=== PATIENT | male | born 2000 | race Two or more races ===

== ENCOUNTER 2022-03-08 05:25 | Inpatient (IN) ==
[2022-03-08] MEDS ORDERED: ACETAMINOPHEN 1,000 MG/100 ML VIAL IV STA (05:37)
[2022-03-08] MEDS ORDERED: KETOROLAC 30 MG/ML VIAL IV STA (05:37)
--- NOTE | 2022-03-08 05:52 | Emergency Department Note ---
History of Present Illness General Chief complaint: Respiratory Problems Stated complaint: HAVING TROUBLE BREATHING,PAIN Time Seen by Provider: 03/08/22 05:32 History of Present Illness Maximum Pain Intensity: 10 This is a 21-year-old male presenting to the emergency department for evaluation of right-sided chest pain that he rates a 10/10. He also states he is having difficulty breathing. The patient was seen and evaluated in this ER roughly 36 hours ago for this complaint. He did have a slightly elevated white count at that time, and ultimately underwent CT angiogram of the chest, which did reveal a right sided infiltrate consistent with pneumonia. The patient was started on doxycycline and states that he has taken 3 doses of the antibiotic. The patient states that his chest pain now is worse than it was before. He did try naproxen at home without relief of symptoms. He does not have any head, neck, or abdominal discomfort. He has been running a fever off and on today. Home Medications Medication Instructions Recorded Confirmed Type doxycycline hyclate 100 mg capsule 100 mg PO BID 7 days #14 caps 03/06/22 Rx Past Med/Surg History Medical History No pertinent family history No pertinent past medical history Surgical History No pertinent past surgical history Social History Smoking Status: Current every day smoker Tobacco Type: E-cigarettes / Vaping Preferred Language: Spanish Feels Safe at Home: Yes Review of Systems A total of 10 systems reviewed and were otherwise negative Physical Exam Vital Signs Vital Signs - 24 hr 03/08/22 05:26 03/08/22 05:33 03/08/22 05:25 Temperature 38.5 C H 37.2 C Temperature Source Temporal Artery Scan Oral Pulse Rate 163 H 135 H Pulse Rate [Right] 143 H Respiratory Rate 18 20 21 Respiratory Effort / Characteristics Non-Labored Spontaneous Non-Labored Respiratory Depth Normal Shallow Respiratory Pattern Regular Blood Pressure 147/81 H Blood Pressure [Right Arm] 140/77 Blood Pressure Mean 103 Blood Pressure Mean [Right Arm] 98 Blood Pressure Position Sitting Pulse Oximetry 96 94 94 Oxygen Delivery Method Room Air Room Air Room Air Sepsis Recent Fever Within 48 Hours Yes Sepsis New/Unexplained Change in Mental Status N/A Sepsis Action Taken by Nursing No Action Required 03/08/22 05:25 Temperature Temperature Source Pulse Rate Pulse Rate [Right] Respiratory Rate Respiratory Effort / Characteristics Respiratory Depth Respiratory Pattern Blood Pressure Blood Pressure [Right Arm] Blood Pressure Mean Blood Pressure Mean [Right Arm] Blood Pressure Position Pulse Oximetry Oxygen Delivery Method Room Air Sepsis Recent Fever Within 48 Hours Sepsis New/Unexplained Change in Mental Status Sepsis Action Taken by Nursing VITALS: Vitals are noted on the nurse's note and reviewed by myself. Vital signs with fever and tachycardia. GENERAL: Well-developed, well-nourished, male who is ill appearing and in moderate discomfort. He is answering questions appropriately and able to speak in full sentences. HEAD: Normocephalic atraumatic. NECK: Supple without nuchal rigidity. No lymphadenopathy. No thyromegaly. Cervical spine is nontender. HEART: Regular rate and rhythm without murmurs gallops or rubs. LUNGS: Scattered wheezing throughout ABDOMEN: Positive normal bowel sounds x 4. Soft, nontender, without masses or organomegaly. No guarding or rebound tenderness. MUSCULOSKELETAL: No muscle atrophy, erythema, or edema noted. Full range of motion in all extremities. Course Administered Medications Sodium Chloride (Nss 1000ml) 1,000 mls @ 999 mls/hr IV .Q1H1M DAWOOD Stop: 03/08/22 07:45 Last Admin: 03/08/22 06:49 Dose: 999 mls/hr Documented By: Infusion: 03/08/22 06:49 Dose: 999 mls/hr Documented By: Admin: 03/08/22 05:54 Dose: 999 mls/hr Documented By: JEOVANNY Discontinued Medications Acetaminophen (Ofirmev) 1,000 mg in 100 mls @ 400 mls/hr IV NOW STA Stop: 03/08/22 05:51 Last Infusion: 03/08/22 06:24 Dose: 0 mls/hr Documented By: Admin: 03/08/22 05:53 Dose: 400 mls/hr Documented By: JEOVANNY Ceftriaxone Sodium (Rocephin) 2,000 mg in 70 mls @ 140 mls/hr IV NOW STA Stop: 03/08/22 07:10 Last Admin: 03/08/22 06:49 Dose: 140 mls/hr Documented By: JEOVANNY Ketorolac Tromethamine (Ketorolac 30 Mg/Ml Vial) 30 mg IV NOW STA Stop: 03/08/22 05:38 Last Admin: 03/08/22 05:53 Dose: 30 mg Documented By: JEOVANNY Medical Decision Making Differential Diagnosis Differential diagnosis: Etiologies such as viral syndrome, otitis, pharyngitis, pneumonia, influenza, meningitis, urinary tract infection, septic arthritis, soft tissue infectious process, intra-abdominal process, sepsis, bacteremia, as well as others were entertained. Laboratory Data Result diagrams: 03/08/22 05:46 03/08/22 05:46 Lab Results 03/08/22 03/08/22 03/08/22 Range/Units 05:46 05:46 05:46 WBC 14.55 H (4.8-10.8) K/ul RBC 4.47 L (4.63-6.08) M/uL Hgb 13.3 L (14.0-18.0) g/dl Hct 37.3 L (40.1-51.0) % MCV 83.4 (80.0-100.0) fL MCH 29.8 (25.0-34.0) pg MCHC 35.7 (32.0-36.0) g/dL RDW Std Deviation 34.0 L (36.4-46.3) fL RDW Coeff of Rose 11.1 L (11.5-14.5) % Plt Count 324 (130-400) K/uL MPV 9.6 (9.4-12.4) fL Immature Gran % (Auto) 0.3 % Neut % (Auto) 89.5 % Lymph % (Auto) 3.8 % [place] % (Auto) 5.4 % Eos % (Auto) 0.8 % Baso % (Auto) 0.2 % Neut # (Auto) 13.04 H (1.4-6.5) K/uL Lymph # (Auto) 0.55 L (1.2-3.4) K/uL [place] # (Auto) 0.78 (0.24-0.82) K/uL Eos # (Auto) 0.11 (0-0.50) K/uL Baso # (Auto) 0.03 (0-0.2) K/uL Immature Gran # (Auto) 0.04 H (0.00-0.02) K/uL Sodium 136 (136-145) mmol/L Potassium 3.4 L (3.5-5.1) mmol/L Chloride 103 (98-107) mmol/L Carbon Dioxide 23 (21-32) mmol/L Anion Gap 10 (3-11) BUN 13 (6-23) mg/dl Creatinine 0.79 (0.6-1.4) mg/dl Est Cr Clr Drug Dosing 183.6 ml/min Est GFR ( Amer) 149.8 ml/min Est GFR (Non-Af Amer) 129.3 ml/min BUN/Creatinine Ratio 16.5 (10-20) Glucose 130 H (70-99(Fasting)) mg/dl Lactate 0.7 (0.4-2.0) mmol/L Calcium 9.1 (8.5-10.1) mg/dl Magnesium 1.6 L (1.7-2.4) mg/dl Total Bilirubin 1.7 H (0.2-1.0) mg/dl Direct Bilirubin 0.7 H (0-0.2) mg/dl AST 15 (13-39) U/L ALT 22 (7-52) U/L Alkaline Phosphatase 85 (34-104) U/L Troponin I High Sens 3.4 (0-20) pg/ml Total Protein 7.5 (6.0-8.3) gm/dl Albumin 4.1 (3.4-5.0) gm/dl Procalcitonin (0-0.5) ng/ml Urine Color Urine Appearance (Clear) Urine pH (4.5-7.5) Ur Specific [place] (1.000-1.030) Urine Protein (Negative) Urine Glucose (UA) (Negative) Urine Ketones (Negative) Urine Blood (Negative) Urine Nitrite (Negative) Urine Bilirubin (Negative) Urine Urobilinogen (Negative) Ur Leukocyte Esterase (Negative) SARS-CoV-2 (PCR) (Negative) Influenza Type A (PCR) (Neg) Influenza Type B (PCR) (Neg) RSV (RT-PCR) (Neg) 03/08/22 03/08/22 03/08/22 Range/Units 05:46 Unknown Unknown WBC (4.8-10.8) K/ul RBC (4.63-6.08) M/uL Hgb (14.0-18.0) g/dl Hct (40.1-51.0) % MCV (80.0-100.0) fL MCH (25.0-34.0) pg MCHC (32.0-36.0) g/dL RDW Std Deviation (36.4-46.3) fL RDW Coeff of Rose (11.5-14.5) % Plt Count (130-400) K/uL MPV (9.4-12.4) fL Immature Gran % (Auto) % Neut % (Auto) % Lymph % (Auto) % [place] % (Auto) % Eos % (Auto) % Baso % (Auto) % Neut # (Auto) (1.4-6.5) K/uL Lymph # (Auto) (1.2-3.4) K/uL [place] # (Auto) (0.24-0.82) K/uL Eos # (Auto) (0-0.50) K/uL Baso # (Auto) (0-0.2) K/uL Immature Gran # (Auto) (0.00-0.02) K/uL Sodium (136-145) mmol/L Potassium (3.5-5.1) mmol/L Chloride (98-107) mmol/L Carbon Dioxide (21-32) mmol/L Anion Gap (3-11) BUN (6-23) mg/dl Creatinine (0.6-1.4) mg/dl Est Cr Clr Drug Dosing ml/min Est GFR ( Amer) ml/min Est GFR (Non-Af Amer) ml/min BUN/Creatinine Ratio (10-20) Glucose (70-99(Fasting)) mg/dl Lactate (0.4-2.0) mmol/L Calcium (8.5-10.1) mg/dl Magnesium (1.7-2.4) mg/dl Total Bilirubin (0.2-1.0) mg/dl Direct Bilirubin (0-0.2) mg/dl AST (13-39) U/L ALT (7-52) U/L Alkaline Phosphatase (34-104) U/L Troponin I High Sens (0-20) pg/ml Total Protein (6.0-8.3) gm/dl Albumin (3.4-5.0) gm/dl Procalcitonin 0.56 H (0-0.5) ng/ml Urine Color Yellow Urine Appearance Clear (Clear) Urine pH 6.5 (4.5-7.5) Ur Specific [place] 1.020 (1.000-1.030) Urine Protein Negative (Negative) Urine Glucose (UA) Negative (Negative) Urine Ketones Negative (Negative) Urine Blood Negative (Negative) Urine Nitrite Negative (Negative) Urine Bilirubin Negative (Negative) Urine Urobilinogen Positive H (Negative) Ur Leukocyte Esterase Negative (Negative) SARS-CoV-2 (PCR) NEGATIVE (Negative) Influenza Type A (PCR) Negative (Neg) Influenza Type B (PCR) Negative (Neg) RSV (RT-PCR) Negative (Neg) Imaging Data Radiologist's Impression: Chest X-Ray 03/08/22 05:33 XR chest 1V portable HISTORY: 21 years-old Male Sepsis acute shortness of breath with sepsis COMPARISON: Chest radiograph and CTA chest study is 03/06/2022 TECHNIQUE: AP view of the chest FINDINGS: Cardiomediastinal and hilar silhouettes are within normal limits. Mildly increased size of the small right pleural effusion with progressive right midlung and right basilar consolidation. No pneumothorax. The left lung and appears to be generally clear. The bones appear grossly intact. IMPRESSION: Mildly increased size of the small right pleural effusion with progressive consolidation of the right midlung and right lung base suggestive of pneumonia. ACT 112: Negative or not required by law. The above report was generated using voice recognition software. It may contain grammatical, syntax or spelling errors. Electronically signed by: Jacoby Castillo M.D. 03/08/2022 6:37 AM [facility] Narrative Physical exam and history were performed. Nursing notes, EMR, and Medication List were personally reviewed. Patient appears to have recent diagnosis with pneumonia and reportedly worsening symptoms today. The patient is tachycardic and febrile on arrival. He appears unwell. IV access was established and labs are obtained. He was hydrated with normal saline and given IV Toradol and IV Tylenol. Lactic and blood cultures were gathered. Chest x-ray was performed. An order was placed for continuous cardiac monitoring. The monitor shows a rate of 135 with sinus tachycardic rhythm. The patient's blood work is as above and was reviewed. He does have an elevated white count, and this does seem worse than yesterday. Additionally his neutrophils are elevated. Electrolytes and transaminases are not remarkably. COVID, influenza, and RSV are all negative. Chest x-ray was reviewed by myself and radiology, and does show a worsening pneumonia on the right side. Lactic is negative. Case was discussed with my attending, and clinically the patient likely has a community-acquired pneumonia. He does not have other significant comorbidities. He was given IV Rocephin and IV Zithromax here in the ER. The patient does not appear well for discharge home as he has worsening pneumonia despite antibiotic treatment. The case was discussed with the on-call hospitalist team who agreed to evaluate the patient here in the ER. Please see their dictation for further patient course, plan, disposition. The chart was completed utilizing [employer] Speech Voice Recognition Software. Grammatical errors, random word insertions, pronoun errors, and incomplete sentences are an occasional consequence of this system due to software limitations, ambient noise, and hardware issues. Any formal questions or concern s about the content, text, or information contained within the body of this dictation should be directly addressed to the provider for clarification. . Impression & Plan Pneumonia Discharge Plan Visit Data Chief Complaint: Respiratory Problems Stated Complaint: HAVING TROUBLE BREATHING,PAIN ED Provider: Jovita Barrera ED Midlevel Provider: Brenden Monk Discharge Problem: Pneumonia Patient Disposition: Being Evaluated by Hospitalist Forms Stand Alone Forms: My [facility] ClientShow Prescriptions Prescriptions: No Action doxycycline hyclate 100 mg capsule 100 mg PO BID 7 Days Qty: 14 0RF Referrals Referrals: PCP,NO [Physician] -
[2022-03-08] MEDS: SODIUM CHLORIDE 0.9% 1000ML 1,000 ML IV SCH ×2 (05:54→06:49)
[2022-03-08 06:01] LABS: Basophils # (auto) 0.03 K/uL (0-0.2); Basophils % (auto) 0.2 %; Eosinophils # (auto) 0.11 K/uL (0-0.50); Eosinophils % (auto) 0.8 %; Hematocrit (blood only) 37.3 % (40.1-51.0); Hemoglobin 13.3 g/dl (14.0-18.0); Immature Granulocytes # (auto) 0.04 K/uL (0.00-0.02); Immature Granulocytes % (auto) 0.3 %; Lymphocytes # (auto) 0.55 K/uL (1.2-3.4); Lymphocytes % (auto) 3.8 %; Mean Corpuscular Hemoglobin 29.8 pg (25.0-34.0); Mean Corpuscular Hgb Conc 35.7 g/dL (32.0-36.0); Mean Corpuscular Volume 83.4 fL (80.0-100.0); Mean Platelet Volume 9.6 fL (9.4-12.4); Monocytes # (auto) 0.78 K/uL (0.24-0.82); Monocytes % (auto) 5.4 %; Neutrophils # (auto) 13.04 K/uL (1.4-6.5); Neutrophils % (auto) 89.5 %; Platelet Count 324 K/uL (130-400); RDW Coefficient of Variation 11.1 % (11.5-14.5); Red Blood Count 4.47 M/uL (4.63-6.08); White Blood Count 14.55 K/ul (4.8-10.8)
[2022-03-08 06:36] LABS: Troponin I High Sensitivity 3.4 pg/ml (0-20)
--- NOTE | 2022-03-08 06:38 | XRay Report ---
XR chest 1V portable HISTORY: 21 years-old Male Sepsis acute shortness of breath with sepsis COMPARISON: Chest radiograph and CTA chest study is 03/06/2022 TECHNIQUE: AP view of the chest FINDINGS: Cardiomediastinal and hilar silhouettes are within normal limits. Mildly increased size of the small right pleural effusion with progressive right midlung and right basilar consolidation. No pneumothora x. The left lung and appears to be generally clear. The bones appear grossly intact. IMPRESSION: Mildly increased size of the small right pleural effusion with progressive consolidation of the right midlung and right lung base suggestive of pneumonia. ACT 112: Negative or not required by law. The above report was generated using voice recognition software. It may contain grammatical, syntax o r spelling errors. Electronically signed by: Jacoby Castillo M.D. 03/08/2022 6:37 AM
[2022-03-08 06:41] LABS: Albumin Level 4.1 gm/dl (3.4-5.0); BUN Creatinine Ratio 16.5 (10-20); Bilirubin Direct 0.7 mg/dl (0-0.2); Bilirubin,Total 1.7 mg/dl (0.2-1.0); Calcium 9.1 mg/dl (8.5-10.1); Creatinine Clr Calc Pharmacy 183.6 ml/min; Est GFR (African American) 149.8 ml/min; Est GFR (Non-African American) 129.3 ml/min; Magnesium 1.6 mg/dl (1.7-2.4); Potassium 3.4 mmol/L (3.5-5.1); Total Protein 7.5 gm/dl (6.0-8.3)
[2022-03-08] MEDS ORDERED: cefTRIAXone SODIUM 2,000 MG/70 ML BAG IV STA (06:41)
[2022-03-08] MEDS ORDERED: AZITHROMYCIN 500 MG in DEXTROSE 5% 250 ML IV STA (06:41)
[2022-03-08 07:09] LABS: Influenza A virus by PCR Negative (Neg); Influenza B virus by PCR Negative (Neg); RSV by PCR Negative (Neg); SARS CoV2 RNA(COVID-19) Ceph NEGATIVE (Negative)
[2022-03-08 07:12] LABS: Appearance Urine Clear (Clear); Bilirubin Urine Negative (Negative); Blood Urine Negative (Negative); Color Urine Yellow; Glucose Urine UA Negative (Negative); Ketones Urine Negative (Negative); Leukocyte Esterase Urine Negative (Negative); Nitrite Urine Negative (Negative); Protein Urine Negative (Negative); Urobilinogen Urine Positive (Negative); pH Urine 6.5 (4.5-7.5)
[2022-03-08] MEDS ORDERED: POLYETHYLENE (MIRALAX) 17 GM PACK PO PRN (09:22)
[2022-03-08] MEDS ORDERED: ONDANSETRON INJ 2 MG/ML 2 ML VIAL IV PRN (09:22)
[2022-03-08] MEDS ORDERED: ALUMINUM/MAGNESIUM SUSP 30 ML UDC PO PRN (09:22)
--- NOTE | 2022-03-08 10:29 | Medical Student Progress Note ---
Date of Service March 08, 2022 Assessment & Plan (1) Pneumonia: Plan: Delvin Sweeney is a 21 year old male who presented early this morning (03/08) with worsening chest pain, accompanied by SOB and cough. He presented to the ED 2 days ago on 03/06 with recent URI and chest pain. He was found to have right- sided infiltrate consistent with pneumonia and trace right pleural effusion on CT. Prescribed doxycycline & took 3 doses of the antibiotic. 1. Pneumonia - Patient presented to ED early this morning to ED for worsening chest pain and SOB. Chest XR today showed progressive consolidation of right mid-lung and lung base consistent with pneumonia & mildly increased size of right pleural effusion. - Labs significant for leukocytosis, mild hyperbilirubinemia, elevated procalcitonin. - Discontinued doxycycline. Started on ceftriaxone 2 g IV q24h and azithromycin 0.5 g IV q24h for broader abx coverage in case of resistant S. Pneumo, H. flu, or other gram negative. Azithromycin for atypical coverage, though decreased suspicion for atypical as CXR shows a lobar pattern. Plan to observe for improvement/stabilization. - Prescribed acetaminophen 650 mg PO q4h prn for pleuritic chest pain related to PNA. Admission and Anticipated Discharge Date Admission Date: March 08, 2022 Supervising Attestation I personally examined the patient and verified all dugan points of history and exam, discussed case, and agree with decision making with La Nena Kowalski MS2 Chest pain, cough, fever. Pneumonia. Vitals noted, in general he is awake and alert fatigued but no distress. HEENT normocephalic atraumatic mucous membranes moist. Breathing unlabored no accessory muscle use good effort. Skin shows no rashes no pallor or icterus. Neuro without focal deficits. Exam otherwise as above. Community-acquired pneumonia with sepsis present on admission -not entirely clear if he failed Doxy or just enough time to improvehowever, resistant strep versus H. influenzae both possibleZithromax/Rocephin, supportive care. Subjective Delvin Sweeney is a 21 year old male patient with no significant past medical history presenting to the ED for worsening chest pain and shortness of breath. Patient went to [facility] one week ago for chest pain and was prescribed naproxen. Patient presented to the ED on 03/06 for ongoing chest pain and shortness of breath. Chest x-ray in ED showed findings of mid right hemidiaphragmatic elevation with no evidence of pneumothorax, pleural effusion, airspace consolidation or overt pulmonary edema. Chest CTA showed findings of a small focal peripheral airspace opacity within the right upper lobe. Patient was treated for pneumonia with doxycycline 100mg BID. Patient is presenting to the ED today with worsening chest pain and shortness of breath. Patient reports the pain is on the right side and is sharp in nature. Patient rates the pain 6-7/10. Patient states the pain is worse with breathing and when changing positions. The patient denies radiation of pain. Patient states naproxen improves chest pain for 30 minutes to an hour at a time before returning. Patient also states he experiences right sided neck pain when coughing or changing position. Patient reports shortness of breath has not improved. Patient also has dry cough that has been improving. Patient reports one episode of vomiting yesterday morning. Patient states he is fatigued and has a decreased appetite. Patient vapes daily. Patient stopped vaping 2 weeks ago when started feeling sick. Patient denies sore throat, chills, lightheadedness, headache, abdominal pain, nausea, diarrhea, constipation, dysuria, or hematuria. FamHx: Father: CAD Paternal Grandfather: CAD SocHx: Education/ Occupation: Student at [employer]. Tobacco: vapes daily. Alcohol: none. Illicits: none. Exercise: none. Home Meds: None Review of Systems Review of Systems: As noted in HPI. Cardiovascular: Additional Comments: Physical Exam Constitutional: Well-developed male in no acute distress. Resting comfortably in bed, increased discomfort with sitting/movement. Eyes: No scleral icterus. Conjunctivae pink. ENMT: Moist mucous membranes. No oral erythema or lesions. Neck: Supple with full ROM. Respiratory: Not in respiratory distress. Diminished breath sounds in right lower lung field. +egophony over the right lower lung field. No tactile fremitus . Left lung clear to auscultation. Cardiovascular: Regular rate and rhythm on monitor. No murmurs, rubs, or gallops on auscultation. No LE edema. Good capillary refill. Gastrointestinal (Abdomen): Bowel sounds present. Abdomen soft, nondistended, nontender. No masses palpated. Skin: Warm & dry. No rashes. Neurologic: Alert & oriented x 3. No focal neurologic deficits. Psychiatric: Appropriate mood and affect. Results & Data ([facility]) Vital Signs (Past 12 Hours) Vital Signs Temp Pulse Pulse Resp BP BP Pulse Ox 03/08/22 08:40 105 H 24 96 03/08/22 08:32 106 H 23 110/71 96 03/08/22 08:32 110/71 03/08/22 08:30 101 H 32 H 95 03/08/22 08:30 117/74 03/08/22 08:25 96 03/08/22 08:10 104 H 21 03/08/22 08:00 108 H 14 03/08/22 08:00 128/68 03/08/22 07:45 110 H 21 122/68 95 03/08/22 07:40 112 H 28 H 95 03/08/22 07:30 116 H 15 94 03/08/22 07:15 120/73 03/08/22 07:00 126 H 24 132/68 94 03/08/22 05:25 03/08/22 05:25 37.2 C 143 H 21 140/77 94 03/08/22 05:33 135 H 20 94 03/08/22 05:26 38.5 C H 163 H 18 147/81 H 96 O2 Del Method 03/08/22 08:40 Room Air 03/08/22 08:32 Room Air 03/08/22 08:32 03/08/22 08:30 Room Air 03/08/22 08:30 03/08/22 08:25 Room Air 03/08/22 08:10 03/08/22 08:00 03/08/22 08:00 03/08/22 07:45 Room Air 03/08/22 07:40 Room Air 03/08/22 07:30 Room Air 03/08/22 07:15 03/08/22 07:00 Room Air 03/08/22 05:25 Room Air 03/08/22 05:25 Room Air 03/08/22 05:33 Room Air 03/08/22 05:26 Room Air
--- NOTE | 2022-03-08 17:33 | History & Physical Report ---
Date of Service March 08, 2022 Assessment & Plan Admission and Anticipated Discharge Date Admission Date: March 08, 2022 History of Present Illness Primary Care Provider: [facility] Date of Service March 08, 2022 Assessment & Plan (1) Pneumonia: Plan: Delvin Sweeney is a 21 year old male who presented early this morning (03/08) with worsening chest pain, accompanied by SOB and cough. He presented to the ED 2 days ago on 03/06 with recent URI and chest pain. He was found to have right- sided infiltrate consistent with pneumonia and trace right pleural effusion on CT. Prescribed doxycycline & took 3 doses of the antibiotic. 1. Pneumonia - Patient presented to ED early this morning to ED for worsening chest pain and SOB. Chest XR today showed progressive consolidation of right mid-lung and lung base consistent with pneumonia & mildly increased size of right pleural effusion. - Labs significant for leukocytosis, mild hyperbilirubinemia, elevated procalcitonin. - Discontinued doxycycline. Started on ceftriaxone 2 g IV q24h and azithromycin 0.5 g IV q24h for broader abx coverage in case of resistant S. Pneumo, H. flu, or other gram negative. Azithromycin for atypical coverage, though decreased suspicion for atypical as CXR shows a lobar pattern. Plan to observe for improvement/stabilization. - Prescribed acetaminophen 650 mg PO q4h prn for pleuritic chest pain related to PNA. Admission and Anticipated Discharge Date Admission Date: March 08, 2022 Supervising Attestation I personally examined the patient and verified all dugan points of history and exam, discussed case, and agree with decision making with La Nena Kowalski MS2 Chest pain, cough, fever. Pneumonia. Vitals noted, in general he is awake and alert fatigued but no distress. HEENT normocephalic atraumatic mucous membranes moist. Breathing unlabored no accessory muscle use good effort. Skin shows no rashes no pallor or icterus. Neuro without focal deficits. Exam otherwise as above. Community-acquired pneumonia with sepsis present on admission -not entirely clear if he failed Doxy or just enough time to improvehowever, resistant strep versus H. influenzae both possibleZithromax/Rocephin, supportive care. Subjective Delvin Sweeney is a 21 year old male patient with no significant past medical history presenting to the ED for worsening chest pain and shortness of breath. Patient went to [facility] one week ago for chest pain and was prescribed naproxen. Patient presented to the ED on 03/06 for ongoing chest pain and shortness of breath. Chest x-ray in ED showed findings of mid right hemidiaphragmatic elevation with no evidence of pneumothorax, pleural effusion, airspace consolidation or overt pulmonary edema. Chest CTA showed findings of a small focal peripheral airspace opacity within the right upper lobe. Patient was treated for pneumonia with doxycycline 100mg BID. Patient is presenting to the ED today with worsening chest pain and shortness of breath. Patient reports the pain is on the right side and is sharp in nature. Patient rates the pain 6-7/10. Patient states the pain is worse with breathing and when changing positions. The patient denies radiation of pain. Patient states naproxen improves chest pain for 30 minutes to an hour at a time before returning. Patient also states he experiences right sided neck pain when coughing or changing position. Patient reports shortness of breath has not improved. Patient also has dry cough that has been improving. Patient reports one episode of vomiting yesterday morning. Patient states he is fatigued and has a decreased appetite. Patient vapes daily. Patient stopped vaping 2 weeks ago when started feeling sick. Patient denies sore throat, chills, lightheadedness, headache, abdominal pain, nausea, diar burke, constipation, dysuria, or hematuria. FamHx: Father: CAD Paternal Grandfather: CAD SocHx: Education/ Occupation: Student at [employer]. Tobacco: vapes daily. Alcohol: none. Illicits: none. Exercise: none. Home Meds: None Review of Systems Review of Systems: As noted in HPI. Cardiovascular: Additional Comments: Physical Exam Constitutional: Well-developed male in no acute distress. Resting comfortably in bed, increased discomfort with sitting/movement. Eyes: No scleral icterus. Conjunctivae pink. ENMT: Moist mucous membranes. No oral erythema or lesions. Neck: Supple with full ROM. Respiratory: Not in respiratory distress. Diminished breath sounds in right lower lung field. +egophony over the right lower lung field. No tactile fremitus. Left lung clear to auscultation. Cardiovascular: Regular rate and rhythm on monitor. No murmurs, rubs, or gallops on auscultation. No LE edema. Good capillary refill. Gastrointestinal (Abdomen): Bowel sounds present. Abdomen soft, nondistended, nontender. No masses palpated. Skin: Warm & dry. No rashes. Neurologic: Alert & oriented x 3. No focal neurologic deficits. Psychiatric: Appropriate mood and affect. Results & Data ([facility] [place]) Vital Signs (Past 12 Hours) Vital Signs Temp Pulse Pulse Resp BP BP Pulse Ox 03/08/22 08:40 105 H 24 96 03/08/22 08:32 106 H 23 110/71 96 03/08/22 08:32 110/71 03/08/22 08:30 101 H 32 H 95 03/08/22 08:30 117/74 03/08/22 08:25 96 03/08/22 08:10 104 H 21 03/08/22 08:00 108 H 14 03/08/22 08:00 128/68 03/08/22 07:45 110 H 21 122/68 95 03/08/22 07:40 112 H 28 H 95 03/08/22 07:30 116 H 15 94 03/08/22 07:15 120/73 C 03/08/22 07:00 126 H 24 132/68 94 03/08/22 05:25 03/08/22 05:25 37.2 C 143 H 21 140/77 94 03/08/22 05:33 135 H 20 94 03/08/22 05:26 38.5 C H 163 H 18 147/81 H 96 C O2 Del Method 03/08/22 08:40 Room Air 03/08/22 08:32 Room Air 03/08/22 08:32 03/08/22 08:30 Room Air 03/08/22 08:30 03/08/22 08:25 Room Air 03/08/22 08:10 03/08/22 08:00 03/08/22 08:00 03/08/22 07:45 Room Air 03/08/22 07:40 Room Air 03/08/22 07:30 Room Air 03/08/22 07:15 03/08/22 07:00 Room Air 03/08/22 05:25 Room Air 03/08/22 05:25 Room Air 03/08/22 05:33 Room Air 03/08/22 05:26 Room Air Signed By: <Electronically signed by Janie Kowalski > 03/08/22 1610 <Electronically signed by Solomon Talamantes DO> 03/08/22 1732 Allergies Allergy/AdvReac Type Severity Reaction Status Date / Time No Known Allergies Allergy Unverified 03/08/22 15:43 Home Medications Medication Instructions Recorded Confirmed Type doxycycline hyclate 100 mg capsule 100 mg PO BID 7 days #14 caps 03/06/22 03/08/22 Rx naproxen 500 mg tablet 500 mg PO UD 03/08/22 03/08/22 History Past Med/Surg History Medical History No pertinent family history No pertinent past medical history Surgical History No pertinent past surgical history Social History Smoking Status: Current every day smoker Tobacco Type: E-cigarettes / Vaping Preferred Language: Faroese Communication Ability: Effective Feels Safe at Home: Yes Assistive Devices: None Results & Data Results & Data ([facility] [place]) Vital Signs (Past 12 Hours) Vital Signs Temp Pulse Pulse Resp BP BP Pulse Ox 03/08/22 11:37 89 20 132/66 98 03/08/22 07:08 99.1 F 03/08/22 08:40 105 H 24 96 03/08/22 08:32 106 H 23 110/71 96 03/08/22 08:32 110/71 03/08/22 08:30 101 H 32 H 95 03/08/22 08:30 117/74 03/08/22 08:25 96 03/08/22 08:10 104 H 21 03/08/22 08:00 108 H 14 03/08/22 08:00 128/68 03/08/22 07:45 110 H 21 122/68 95 03/08/22 07:40 112 H 28 H 95 03/08/22 07:30 116 H 15 94 03/08/22 07:15 120/73 03/08/22 07:00 126 H 24 132/68 94 O2 Del Method 03/08/22 11:37 Room Air 03/08/22 07:08 03/08/22 08:40 Room Air 03/08/22 08:32 Room Air 03/08/22 08:32 12/08/22 08:30 Room Air 03/08/22 08:30 03/08/22 08:25 Room Air 03/08/22 08:10 03/08/22 08:00 03/08/22 08:00 03/08/22 07:45 Room Air 03/08/22 07:40 Room Air 03/08/22 07:30 Room Air 03/08/22 07:15 03/08/22 07:00 Room Air PG Care Time/CCT Total # of Minutes Spent Total Time Spent with Patient: Total time spent is greater than 50% in coordination of care (as documented) at patient's floor/unit and/or counseling patient: Coding Level of Care Code INT OBSERVATION CARE 70M LVL 3
[2022-03-08] MEDS: ACETAMINOPHEN 325 MG TAB PO PRN (18:01)
[2022-03-09] MEDS: ACETAMINOPHEN 325 MG TAB PO PRN ×2 (00:09→07:48)
--- NOTE | 2022-03-09 05:34 | Electrocardiogram Report ---
Test Reason : Blood Pressure : / mmHG Vent. Rate : 151 BPM Atrial Rate : 151 BPM P-R Int : 134 ms QRS Dur : 086 ms QT Int : 254 ms P-R-T Axes : 057 044 -02 degrees QTc Int : 402 ms Poor data quality, interpretation may be adversely affected Sinus tachycardia T wave abnormality, consider inferior ischemia Nonspecific ST abnormality Abnormal ECG When compared with ECG of 06-MAR-2022 17:04, Non-specific change in ST segment in Lateral leads Confirmed by Carlitos Bonilla ([id number]) on 03/09/2022 5:34:41 AM Referred By: REFERRED SELF Confirmed By:Carlitos Bonilla
[2022-03-09] MEDS: cefTRIAXone SODIUM 2,000 MG in DEXTROSE 5% 50 ML IV SCH (06:32)
[2022-03-09] MEDS: AZITHROMYCIN 500 MG in DEXTROSE 5% 250 ML IV SCH (07:53)
[2022-03-09 08:01] LABS: Basophils # (auto) 0.03 K/uL (0-0.2); Basophils % (auto) 0.2 %; Eosinophils # (auto) 0.35 K/uL (0-0.50); Eosinophils % (auto) 2.4 %; Hematocrit (blood only) 33.8 % (40.1-51.0); Hemoglobin 11.7 g/dl (14.0-18.0); Immature Granulocytes # (auto) 0.08 K/uL (0.00-0.02); Immature Granulocytes % (auto) 0.5 %; Lymphocytes # (auto) 1.61 K/uL (1.2-3.4); Lymphocytes % (auto) 10.8 %; Mean Corpuscular Hemoglobin 29.3 pg (25.0-34.0); Mean Corpuscular Hgb Conc 34.6 g/dL (32.0-36.0); Mean Corpuscular Volume 84.5 fL (80.0-100.0); Mean Platelet Volume 9.6 fL (9.4-12.4); Monocytes # (auto) 1.42 K/uL (0.24-0.82); Monocytes % (auto) 9.5 %; Neutrophils # (auto) 11.39 K/uL (1.4-6.5); Neutrophils % (auto) 76.6 %; Platelet Count 313 K/uL (130-400); RDW Coefficient of Variation 11.4 % (11.5-14.5); RDW Standard Deviation 35.4 fL (36.4-46.3); White Blood Count 14.88 K/ul (4.8-10.8)
[2022-03-09 08:35] LABS: Alanine Aminotransferase 16 U/L (7-52); Albumin Globulin Ratio 1.1 (0.9-2); Albumin Level 3.5 gm/dl (3.4-5.0); Alkaline Phosphatase 76 U/L (34-104); Anion Gap 7 (3-11); Aspartate Aminotransferase 8 U/L (13-39); BUN Creatinine Ratio 11.4 (10-20); Bilirubin,Total 1.2 mg/dl (0.2-1.0); Blood Urea Nitrogen 8 mg/dl (6-23); Calcium 8.6 mg/dl (8.5-10.1); Carbon Dioxide 26 mmol/L (21-32); Chloride 106 mmol/L (98-107); Creatinine Clr Calc Pharmacy 206.5 ml/min; Est GFR (African American) > 150.0 ml/min; Est GFR (Non-African American) 135.9 ml/min; Globulin 3.2 gm/dl (2.5-4.0); Glucose 99 mg/dl (70-99(Fasting)); Potassium 3.4 mmol/L (3.5-5.1); Sodium 139 mmol/L (136-145); Total Protein 6.7 gm/dl (6.0-8.3)
[2022-03-09] MEDS ORDERED: POTASSIUM CHLORIDE CRTAB 20 MEQ TABCR PO STA (09:02)
[2022-03-09] MEDS ORDERED: ACETAMINOPHEN 325 MG TAB PO ONE (09:04)
[2022-03-09] MEDS: ACETAMINOPHEN 325 MG TAB PO SCH ×2 (13:25→20:12)
[2022-03-09] MEDS: KETOROLAC 30 MG/ML VIAL IV PRN (17:58)
--- NOTE | 2022-03-09 19:43 | Hospitalist Progress Note ---
Date of Service March 09, 2022 Assessment & Plan (1) Pneumonia: Plan: Community-acquired pneumonia with sepsis present on admissionoverall appears to be improving, but still has significant pleuritic pain. Continue Zithromax Rocephin, continue supportive careas far as pleuritic pain goes, Tylenol and Toradol (encouraged to take the Toradol more often). No clear role for reimaging at this time given that he seems to be stabilizing may be slightly improvedgiven the progression on his previous imaging, certainly if he shows any worsening or any failure to improve in the coming days, then repeat imaging would certainly be warranted. Otherwise continue supportive care. Somatic dysfunction rib cageOMT as above DVT prophylaxisambulation Hypomagnesemiasupplement, hypokalemia supplement Admission and Anticipated Discharge Date Admission Date: March 08, 2022 Subjective Breathing is generally okay at rest. His main complaint is a lot of pleuritic pain whenever he tries to move. It took about half hour to get to the bathroom mostly due to pain. he was watching [employer] this AM - noting that he thought it might be a close game due to [employer] defense, even though i thought [employer] would win handily. later on revisit, his pleuritic pain was still too much to feel like he could be OK at home, but he smiled and teased me that he was right about [employer] defense. Otherwise feeling a bit better. All questions answered to the best my ability and his satisfaction. Review of Systems Review of Systems: All systems reviewed & are unremarkable except as noted in HPI & below Physical Exam Physical Exam: In general he is awake and alert oriented pleasant but does appear fatigued and a bit uncomfortable when moving. HEENT normocephalic atraumatic mucous membranes moist. Lungs are diminished air entry throughout his entire right lung, no rhonchi no wheezes good effort. Musculoskeletal/osteopathic shows his right-sided rib cage and paraspinal muscles to be high tone, tender, decreased range of motionbalanced ligamentous tension with some improvement in tissue texture but no real change in pain. Neuro shows cranial nerves II through XII be grossly intact gross motor and sensory intact. Neuro without focal deficits. Results & Data Results & Data ([facility]) Vital Signs (Past 12 Hours) Vital Signs Temp Pulse Pulse Resp BP Pulse Ox O2 Del Method 03/09/22 19:35 Room Air 12/09/22 18:40 98.9 F 94 H 20 118/75 93 Room Air 03/09/22 15:43 99 H 03/09/22 15:42 97.9 F 91 H 16 123/79 96 Room Air 03/09/22 12:28 97.8 F 99 H 16 137/75 92 Room Air 03/09/22 08:00 Room Air PG Care Time/CCT Total # of Minutes Spent Total Time Spent with Patient: Total time spent is greater than 50% in coordination of care (as documented) at patient's floor/unit and/or counseling patient: Coding Level of Care Code 19705 Subseq Hosp Care Lvl 3 Diagnoses Pneumonia J18.9
[2022-03-10] MEDS: KETOROLAC 30 MG/ML VIAL IV PRN ×2 (04:40→20:55)
[2022-03-10] MEDS: cefTRIAXone SODIUM 2,000 MG in DEXTROSE 5% 50 ML IV SCH (06:07)
[2022-03-10 07:05] LABS: Basophils # (auto) 0.03 K/uL (0-0.2); Basophils % (auto) 0.2 %; Eosinophils # (auto) 0.16 K/uL (0-0.50); Eosinophils % (auto) 1.2 %; Hematocrit (blood only) 32.4 % (40.1-51.0); Hemoglobin 11.5 g/dl (14.0-18.0); Immature Granulocytes # (auto) 0.09 K/uL (0.00-0.02); Immature Granulocytes % (auto) 0.7 %; Lymphocytes # (auto) 1.71 K/uL (1.2-3.4); Lymphocytes % (auto) 12.4 %; Mean Corpuscular Hemoglobin 29.7 pg (25.0-34.0); Mean Corpuscular Hgb Conc 35.5 g/dL (32.0-36.0); Mean Corpuscular Volume 83.7 fL (80.0-100.0); Mean Platelet Volume 9.5 fL (9.4-12.4); Monocytes # (auto) 1.37 K/uL (0.24-0.82); Monocytes % (auto) 9.9 %; Neutrophils # (auto) 10.48 K/uL (1.4-6.5); Neutrophils % (auto) 75.6 %; Platelet Count 336 K/uL (130-400); RDW Coefficient of Variation 11.3 % (11.5-14.5); RDW Standard Deviation 34.5 fL (36.4-46.3); Red Blood Count 3.87 M/uL (4.63-6.08); White Blood Count 13.84 K/ul (4.8-10.8)
[2022-03-10 07:26] LABS: Anion Gap 10 (3-11); BUN Creatinine Ratio 10.5 (10-20); Blood Urea Nitrogen 8 mg/dl (6-23); Calcium 8.4 mg/dl (8.5-10.1); Carbon Dioxide 24 mmol/L (21-32); Chloride 105 mmol/L (98-107); Creatinine Clr Calc Pharmacy 190.2 ml/min; Est GFR (African American) > 150.0 ml/min; Est GFR (Non-African American) 131.3 ml/min; Glucose 95 mg/dl (70-99(Fasting)); Potassium 3.4 mmol/L (3.5-5.1); Sodium 139 mmol/L (136-145)
[2022-03-10] MEDS: MAGNESIUM OXIDE 400 MG TAB PO SCH (08:00)
[2022-03-10] MEDS: ACETAMINOPHEN 325 MG TAB PO SCH ×3 (08:00→19:53)
[2022-03-10] MEDS: AZITHROMYCIN 500 MG in DEXTROSE 5% 250 ML IV SCH (08:00)
[2022-03-10] MEDS ORDERED: POTASSIUM CHLORIDE CRTAB 20 MEQ TABCR PO STA (08:12)
--- NOTE | 2022-03-10 09:31 | XRay Report ---
XR chest 2V PA/lateral CLINICAL HISTORY: pneumonia COMPARISON STUDY: Chest CT March 06, 2022. Chest radiograph March 08, 2022. FINDINGS: There is no pneumothorax. There has been significant increase in size of a moderate to larg e right pleural effusion, likely loculated. Right lung airspace opacity has increased. No consolidati on within the left lung is present. Cardiac size is normal. There is no evidence for pulmonary edema. IMPRESSION: 1. Significant increase in size of a moderate to large right pleural effusion, likely loculated. This finding will be called/faxed to the ordering provider at time of dictation. 2. Increase in right lung airspace opacity suggestive of pneumonia. ACT 112: Negative or not required by law. Electronically signed by: Vito Urbina M.D. 03/10/2022 9:28 AM
[2022-03-10] MEDS ORDERED: PIPERACILLIN/TAZOBACTAM 4.5 GM in DEXTROSE 5% 100 ML IV ONE (10:30)
[2022-03-10] MEDS ORDERED: methylPREDNISolone 40 MG in SYRINGE 0 ML IV SCH (11:00)
--- NOTE | 2022-03-10 13:41 | Hospitalist Progress Note ---
Date of Service March 10, 2022 Assessment & Plan (1) Pneumonia: Plan: Right lower lobe. Azithromycin and Rocephin discontinued today, March 10 and Zosyn started, day 1. Will obtain sputum culture if sputum is produced. Serial chest x-rays until clear. (2) Pleurisy with effusion: Plan: Chest x-ray today, March 10, shows enlarging right pleural effusion. There is some question whether this is empyema. Pulmonary medicine consultation appreciated. Chest tube drainage and fluid evaluation later today, March 10. Intravenous Solu-Medrol initiated for pleuritic pain. (3) Sepsis: Plan: Present on admission. Now resolved (4) Hypokalemia: Plan: Oral replacement. Serial labs Plan Anticipate eventual discharge to home Admission and Anticipated Discharge Date Admission Date: March 09, 2022 Subjective Alert and oriented. He is aware that the chest x-ray today, March 10, looks worse with enlarging right pleural effusion. There is some concern that this could be an empyema. Pulmonary medicine consultation was requested and he will be transferred to a higher level monitored bed for probable insertion of right- sided chest tube. Azithromycin and Rocephin have been discontinued and he is now on intravenous Zosyn. Intravenous Solu-Medrol added today for the u nderlying pleurisy. Review of Systems Review of Systems: Constitutional-no fever or chills ENT-no blurred vision, no double vision, no epistaxis, no sore throat Respiratory-inspiratory right anterior chest discomfort. Scant amount of sputum production. No shortness of breath at rest. Cardiac-no palpitations, no chest pain, no syncope GI-no nausea, vomiting, diarrhea, melena, hematochezia -no urinary retention, no urinary incontinence, no dysuria, no hematuria Musculoskeletal-no joint pain, no muscle tenderness Skin-no bruising, no rashes, no pruritus Neuro-no isolated weakness, no paresthesia, no weakness Psych-no depression, no anxiety Physical Exam Physical Exam: General-alert and oriented x3, no fevers, no chills HEENT-head atraumatic and normocephalic, pupils equal and reactive to light, extraocular muscles intact Neck-no lymphadenopathy or thyromegaly, trachea midline Chest-scattered rhonchi on the right side posteriorly with inspiration and expiration. No wheezing. Dullness to percussion at the right base Cardiac-regular rate and rhythm, normal S1 and S2, no murmurs Abdomen-normal bowel sounds, nontender, no hepatosplenomegaly Extremities-no cyanosis, clubbing, or edema Neuro-cranial nerves II through XII intact, motor and sensory function within normal limits, strength symmetrical, no focal deficits Psych-normal affect, normal mood Results & Data Results & Data ([facility]) Vital Signs (Past 12 Hours) Vital Signs Temp Pulse Pulse Resp BP Pulse Ox O2 Del Method 03/10/22 11:43 Nasal Cannula 03/10/22 07:45 Room Air 03/10/22 07:50 36.9 C 111 H 18 134/77 91 Room Air 03/10/22 06:14 111 H 03/10/22 02:28 37.3 C 117 H 18 112/70 92 Room Air O2 Flow Rate 03/10/22 11:43 2 03/10/22 07:45 03/10/22 07:50 03/10/22 06:14 03/10/22 02:28 Laboratory Results 03/10/22 06:31 03/10/22 06:31 PG Care Time/CCT Total # of Minutes Spent Total Time Spent with Patient: Total time spent is greater than 50% in coordination of care (as documented) at patient's floor/unit and/or counseling patient: Coding Level of Care Code 65245 Subseq Hosp Care Lvl 3 Diagnoses Pneumonia J18.9 Pleurisy with effusion J90 Sepsis A41.9 Hypokalemia E87.6
--- NOTE | 2022-03-10 16:30 | Pulmonary Consultation ---
Date of Consultation March 10, 2022 Assessment & Plan (1) Loculated pleural effusion: (2) Pneumonia: (3) Engages in vaping: Plan Highly suspect empyema based on clinical picture and radiographic images. I performed a bedside ultrasound which demonstrated multifocal loculated eff usions. Patient would prefer a second opinion from a tertiary center and discussion with thoracic surgery. Will defer to primary team for transfer to tertiary center. Patient may very likely need video-assisted thoracic surgery. Continue with broad-spectrum antibiotics. MRSA screen ordered. Recommended complete cessation of vaping. ?EVALI related process History of Present Illness Reason for Consultation: Possible empyema Attending Physician: Jake Padilla MD History of Present Illness Patient presented to the hospital with increasing shortness of breath and pleurisy. He was treated for community-acquired pneumonia. Chest x-ray was obtained today which demonstrated a large loculated effusion on imaging. Patient notes pleurisy. He feels fatigued. He notes that he denies any alcohol abuse or drug abuse. He vapes heavily. Pleural ultrasound performed by me at bedside demonstrates a complex multiloculated effusion. Patient would like a second opinion from a tertiary center. I spoke with the patient's family friend over the phone who is the physician in [place]. Allergies Allergy/AdvReac Type Severity Reaction Status Date / Time No Known Allergies Allergy Unverified 03/08/22 15:43 Home Medications Medication Instructions Recorded Confirmed Type doxycycline hyclate 100 mg capsule 100 mg PO BID 7 days #14 caps 03/06/22 03/08/22 Rx naproxen 500 mg tablet 500 mg PO UD 03/08/22 03/08/22 History Patient History Medical History (Updated 03/10/22 @ 16:36 by Maciel Moreno MD) Engages in vaping Loculated pleural effusion No pertinent family history No pertinent past medical history Surgical History No pertinent past surgical history Social History Smoking Status: Never smoker Tobacco Type: E-cigarettes / Vaping Hx Alcohol Use: No Hx Substance Use: No Preferred Language: Albanian Communication Ability: Effective Beliefs That Will Affect Care: None Current Living Situation: Alone Feels Safe at Home: Yes Assistive Devices: None Review of Systems Review of Systems: All systems reviewed & are unremarkable except as noted in HPI & below Physical Exam Physical Exam: Constitutional: Appears tired. No apparent distress. Eyes: Pupils are equal round and reactive to light. Conjunctivae are normal. Anicteric sclera. Ears nose, mouth and throat: Mallampati class 1. Normal posterior oropharynx. Uvula is midline. Neck: Trachea is midline. Visual inspection is normal. Respiratory: Diminished on the right. No wheezes. Tenderness to palpation of the right chest wall. Cardiovascular: Regular rate and rhythm. No murmurs. No edema. Gastrointestinal: Normal bowel sounds, soft, nontender and nondistended. No hepatosplenomegaly noted. Musculoskeletal: No cyanosis. Patient is able to move all extremities. Strength is 5 out of 5 in the upper and lower extremities. Skin: No rashes, warm dry and intact. Neurologic: No obvious focal neurological deficits seen. Psychiatric: Alert and oriented x3 with a euthymic affect. Results & Data Results & Data ([facility]) Vital Signs (Past 12 Hours) Vital Signs Temp Pulse Pulse Resp BP BP Pulse Ox 03/10/22 16:00 102 H 32 H 92 03/10/22 16:00 143/91 H 03/10/22 15:56 135/87 03/10/22 15:56 112 H 29 H 92 03/10/22 15:00 109 H 38 H 90 03/10/22 14:00 111 H 41 H 93 03/10/22 13:00 106 H 39 H 93 03/10/22 12:00 107 H 26 H 99 03/10/22 12:00 150/95 H 03/10/22 11:23 156/93 H 03/10/22 11:23 110 H 17 98 03/10/22 11:00 111 H 97 03/10/22 11:59 36.9 C 03/10/22 11:43 03/10/22 07:45 03/10/22 07:50 36.9 C 111 H 18 134/77 91 03/10/22 06:14 111 H O2 Del Method O2 Flow Rate 03/10/22 16:00 Room Air 03/10/22 16:00 03/10/22 15:56 03/10/22 15:56 03/10/22 15:00 03/10/22 14:00 03/10/22 13:00 03/10/22 12:00 03/10/22 12:00 03/10/22 11:23 03/10/22 11:23 03/10/22 11:00 03/10/22 11:59 03/10/22 11:43 Nasal Cannula 2 03/10/22 07:45 Room Air 03/10/22 07:50 Room Air 03/10/22 06:14 PG Care Time/CCT Total # of Minutes Spent Total Time Spent with Patient: Total time spent is greater than 50% in coordination of care (as documented) at patient's floor/unit and/or counseling patient: Coding Level of Care Code 42610 Inpt Consult Level 5 Diagnoses Loculated pleural effusion J90 Pneumonia J18.9 Engages in vaping Z72.89
[2022-03-10] MEDS: PIPERACILLIN/TAZOBACTAM 3.375 GM in DEXTROSE 5% 100 ML IV SCH ×2 (17:19→23:37)
[2022-03-11] MEDS: KETOROLAC 30 MG/ML VIAL IV PRN ×2 (05:18→14:30)
[2022-03-11 07:36] LABS: Basophils # (auto) 0.04 K/uL (0-0.2); Basophils % (auto) 0.3 %; Eosinophils # (auto) 0.17 K/uL (0-0.50); Eosinophils % (auto) 1.2 %; Hematocrit (blood only) 31.1 % (40.1-51.0); Hemoglobin 10.6 g/dl (14.0-18.0); Immature Granulocytes # (auto) 0.15 K/uL (0.00-0.02); Immature Granulocytes % (auto) 1.1 %; Lymphocytes # (auto) 1.75 K/uL (1.2-3.4); Lymphocytes % (auto) 12.6 %; Mean Corpuscular Hgb Conc 34.1 g/dL (32.0-36.0); Mean Platelet Volume 9.3 fL (9.4-12.4); Monocytes % (auto) 10.1 %; Neutrophils # (auto) 10.33 K/uL (1.4-6.5); Neutrophils % (auto) 74.7 %; Platelet Count 344 K/uL (130-400); RDW Coefficient of Variation 11.6 % (11.5-14.5); RDW Standard Deviation 35.8 fL (36.4-46.3); Red Blood Count 3.66 M/uL (4.63-6.08); White Blood Count 13.84 K/ul (4.8-10.8)
[2022-03-11 08:03] LABS: Calcium 8.3 mg/dl (8.5-10.1); Est GFR (African American) 147.5 ml/min; Est GFR (Non-African American) 127.3 ml/min; Potassium 3.4 mmol/L (3.5-5.1)
[2022-03-11] MEDS: PIPERACILLIN/TAZOBACTAM 3.375 GM in DEXTROSE 5% 100 ML IV SCH ×3 (08:41→23:22)
[2022-03-11] MEDS: MAGNESIUM OXIDE 400 MG TAB PO SCH (08:45)
[2022-03-11] MEDS: ACETAMINOPHEN 325 MG TAB PO SCH ×5 (08:45→20:49)
[2022-03-11] MEDS ORDERED: POTASSIUM CHLORIDE CRTAB 20 MEQ TABCR PO STA (09:26)
--- NOTE | 2022-03-11 11:34 | Hospitalist Progress Note ---
Date of Service March 11, 2022 Assessment & Plan (1) Pneumonia: Plan: Right lower lobe. Azithromycin and Rocephin discontinued on March 10 and Zosyn started, day 2. Will obtain sputum culture if sputum is produced. (2) Pleurisy with effusion: Plan: Chest x-ray on March 10 shows enlarging right pleural effusion. There is some question whether this is empyema. Pulmonary medicine consultation appreciated. He needs at least a right-sided chest tube and may need a VATS procedure. He request transfer to [facility] whom I have contacted and spoken to thoracic surgery, Dr. Tyshawn Barth, who has excepted the patient in transfer when a bed is available. (3) Sepsis: Plan: Present on admission. Now resolved (4) Hypokalemia: Plan: Continue oral replacement. Serial labs Plan Transfer to [facility] for further care Admission and Anticipated Discharge Date Admission Date: March 09, 2022 Subjective Alert and oriented. No acute distress. Case discussed with pulmonary medicine, Dr. Diana Escalera. He at least needs a right-sided chest tube for the enlarging right pleural effusion which could be empyema and he may need a VATS procedure. I have contacted [facility] and spoken to Dr. Tyshawn Barth, thoracic surgery, who has excepted the patient in transfer. He remains on Zosyn at this time Review of Systems Review of Systems: Constitutional-no fever or chills ENT-no blurred vision, no double vision, no epistaxis, no sore throat Respiratory-inspiratory right anterior chest discomfort. Scant amount of sputum production. No shortness of breath at rest. Cardiac-no palpitations, no chest pain, no syncope GI-no nausea, vomiting, diarrhea, melena, hematochezia -no urinary retention, no urinary incontinence, no dysuria, no hematuria Musculoskeletal-no joint pain, no muscle tenderness Skin-no bruising, no rashes, no pruritus Neuro-no isolated weakness, no paresthesia, no weakness Psych-no depression, no anxiety Physical Exam Physical Exam: General-alert and oriented x3, no fevers, no chills HEENT-head atraumatic and normocephalic, pupils equal and reactive to light, extraocular muscles intact Neck-no lymphadenopathy or thyromegaly, trachea midline Chest-scattered rhonchi on the right side posteriorly with inspiration and expiration. No wheezing. Dullness to percussion and diminished breath sounds at the right base Cardiac-regular rate and rhythm, normal S1 and S2, no murmurs Abdomen-normal bowel sounds, nontender, no hepatosplenomegaly Extremities-no cyanosis, clubbing, or edema Neuro-cranial nerves II through XII intact, motor and sensory function within normal limits, strength symmetrical, no focal deficits Psych-normal affect, normal mood Results & Data Results & Data ([facility]) Vital Signs (Past 12 Hours) Vital Signs Temp Pulse Pulse Resp BP Pulse Ox O2 Del Method 03/11/22 10:11 102 H 03/11/22 09:51 Nasal Cannula 03/11/22 08:00 36.6 C 94 H 18 124/63 97 Room Air 03/11/22 02:57 37.6 C H 110 H 20 141/83 H 94 Nasal Cannula 03/10/22 23:57 104 H O2 Flow Rate 03/11/22 10:11 03/11/22 09:51 2 03/11/22 08:00 03/11/22 02:57 3 03/10/22 23:57 Laboratory Results 03/11/22 07:08 03/11/22 07:08 PG Care Time/CCT Total # of Minutes Spent Total Time Spent with Patient: Total time spent is greater than 50% in coordination of care (as documented) at patient's floor/unit and/or counseling patient: Coding Level of Care Code 11049 Subseq Hosp Care Lvl 3 Diagnoses Pneumonia J18.9 Pleurisy with effusion J90 Sepsis A41.9 Hypokalemia E87.6
--- NOTE | 2022-03-11 11:36 | Discharge Summary ---
Date of Service March 11, 2022 Admission HPI Per Admitting Provider Date of Service March 08, 2022 Assessment & Plan (1) Pneumonia: Plan: Delvin Sweeney is a 21 year old male who presented early this morning (03/08) with worsening chest pain, accompanied by SOB and cough. He presented to the ED 2 days ago on 03/06 with recent URI and chest pain. He was found to have right- sided infiltrate consistent with pneumonia and trace right pleural effusion on CT. Prescribed doxycycline & took 3 doses of the antibiotic. 1. Pneumonia - Patient presented to ED early this morning to ED for worsening chest pain and SOB. Chest XR today showed progressive consolidation of right mid-lung and lung base consistent with pneumonia & mildly increased size of right pleural effusion. - Labs significant for leukocytosis, mild hyperbilirubinemia, elevated procalcitonin. - Discontinued doxycycline. Started on ceftriaxone 2 g IV q24h and azithromycin 0.5 g IV q24h for broader abx coverage in case of resistant S. Pneumo, H. flu, or other gram negative. Azithromycin for atypical coverage, though decreased suspicion for atypical as CXR shows a lobar pattern. Plan to observe for improvement/stabilization. - Prescribed acetaminophen 650 mg PO q4h prn for pleuritic chest pain related to PNA. Admission and Anticipated Discharge Date Admission Date: March 08, 2022 Supervising Attestation I personally examined the patient and verified all dugan points of history and exam, discussed case, and agree with decision making with La Nena Kowalski MS2 Chest pain, cough, fever. Pneumonia. Vitals noted, in general he is awake and alert fatigued but no distress. HEENT normocephalic atraumatic mucous membranes moist. Breathing unlabored no accessory muscle use good effort. Skin shows no rashes no pallor or icterus. Neuro without focal deficits. Exam otherwise as above. Community-acquired pneumonia with sepsis present on admission -not entirely cl ear if he failed Doxy or just enough time to improvehowever, resistant strep versus H. influenzae both possibleZithromax/Rocephin, supportive care. Subjective Delvin Sweeney is a 21 year old male patient with no significant past medical history presenting to the ED for worsening chest pain and shortness of breath. Patient went to [facility] one week ago for chest pain and was prescribed naproxen. Patient presented to the ED on 12/6 for ongoing chest pain and shortness of breath. Chest x-ray in ED showed findings of mid right hemidiaphragmatic elevation with no evidence of pneumothorax, pleural effusion, airspace consolidation or overt pulmonary edema. Chest CTA showed findings of a small focal peripheral airspace opacity within the right upper lobe. Patient was lynne bob for pneumonia with doxycycline 100mg BID. Patient is presenting to the ED today with worsening chest pain and shortness of breath. Patient reports the pain is on the right side and is sharp in nature. Patient rates the pain 6-7/10. Patient states the pain is worse with breathing and when changing positions. The patient denies radiation of pain. Patient states naproxen improves chest pain for 30 minutes to an hour at a time before returning. Patient also states he experiences right sided neck pain when coughing or changing position. Patient reports shortness of breath has not improved. Patient also has dry cough that has been improving. Patient reports one episode of vomiting yesterday morning. Patient states he is fatigued and has a decreased appetite. Patient vapes daily. Patient stopped vaping 2 weeks ago when started feeling sick. Patient denies sore throat, chills, lightheadedness, headache, abdominal pain, nausea, diarrhea, constipation, dysuria, or hematuria. FamHx: Father: CAD Paternal Grandfather: CAD SocHx: Education/ Occupation: Student at [employer]. Tobacco: vapes daily. Alcohol: none. Illicits: none. Exercise: none. Home Meds: None Review of Systems Review of Systems: As noted in HPI. Cardiovascular: Additional Comments: Physical Exam Constitutional: Well-developed male in no acute distress. Resting comfortably in bed, increased discomfort with sitting/movement. Eyes: No scleral icterus. Conjunctivae pink. ENMT: Moist mucous membranes. No oral erythema or lesions. Neck: Supple with full ROM. Respiratory: Not in respiratory distress. Diminished breath sounds in right lower lung field. +egophony over the right lower lung field. No tactile fremitus. Left lung clear to auscultation. Cardiovascular: Regular rate and rhythm on monitor. No murmurs, rubs, or gallops on auscultation. No LE edema. Good capillary refill. Gastrointestinal (Abdomen): Bowel sounds present. Abdomen soft, nondistended, nontender. No masses palpated. Skin: Warm & dry. No rashes. Neurologic: Alert & oriented x 3. No focal neurologic deficits. Psychiatric: Appropriate mood and affect. Results & Data ([facility]) Vital Signs (Past 12 Hours) Vital Signs Temp Pulse Pulse Resp BP BP Pulse Ox 03/08/22 08:40 105 H 24 96 03/08/22 08:32 106 H 23 110/71 96 03/08/22 08:32 110/71 03/08/22 08:30 101 H 32 H 95 03/08/22 08:30 117/74 03/08/22 08:25 96 03/08/22 08:10 104 H 21 03/08/22 08:00 108 H 14 03/08/22 08:00 B 128/68 03/08/22 07:45 110 H 21 122/68 95 03/08/22 07:40 112 H 28 H 95 03/08/22 07:30 116 H 15 94 03/08/22 07:15 120/73 03/08/22 07:00 126 H 24 132/68 94 03/08/22 05:25 03/08/22 05:25 37.2 C 143 H 21 140/77 94 03/08/22 05:33 135 H 20 94 03/08/22 05:26 38.5 C H 163 H 18 147/81 H 96 O2 Del Method 03/08/22 08:40 Room Air 03/08/22 08:32 Room Air 03/08/22 08:32 03/08/22 08:30 Room Air 03/08/22 08:30 03/08/22 08:25 Room Air 03/08/22 08:10 03/08/22 08:00 03/08/22 08:00 03/08/22 07:45 Room Air 03/08/22 07:40 Room Air 03/08/22 07:30 Room Air 03/08/22 07:15 03/08/22 07:00 Room Air 03/08/22 05:25 Room Air 03/08/22 05:25 Room Air 03/08/22 05:33 Room Air 03/08/22 05:26 Room Air Signed By: <Electronically signed by Janie Kowalski > 03/08/22 1610 <Electronically signed by Solomon Talamantes DO> 03/08/22 1732 Principal Diagnosis Right lower lobe pneumonia with right pleural effusion which might be empyema Discharge Exam General-alert and oriented x3, no fevers, no chills HEENT-head atraumatic and normocephalic, pupils equal and reactive to light, extraocular muscles intact Neck-no lymphadenopathy or thyromegaly, trachea midline Chest-scattered rhonchi on the right side posteriorly with inspiration and expiration. No wheezing. Dullness to percussion and diminished breath sounds at the right base Cardiac-regular rate and rhythm, normal S1 and S2, no murmurs Abdomen-normal bowel sounds, nontender, no hepatosplenomegaly Extremities-no cyanosis, clubbing, or edema Neuro-cranial nerves II through XII intact, motor and sensory function within normal limits, strength symmetrical, no focal deficits Psych-normal affect, normal mood Discharge Data Allergies Allergy/AdvReac Type Severity Reaction Status Date / Time No Known Allergies Allergy Unverified 03/08/22 15:43 Consultations 03/08/22 07:12 ED Decision to Admit Stat 03/10/22 10:07 Consult Pulmonology Routine Ordered Studies 03/10/22 10:22 US point of care ultrasound Urgent 03/10/22 11:56 US point of care ultrasound Urgent Hospital Course (1) Pneumonia: Right lower lobe. Azithromycin and Rocephin discontinued on March 10 and Zosyn started, day 2. Will obtain sputum culture if sputum is produced. (2) Pleurisy with effusion: Chest x-ray on March 10 shows enlarging right pleural effusion. There is some question whether this is empyema. Pulmonary medicine consultation appreciated. He needs at least a right-sided chest tube and may need a VATS procedure. He request transfer to [facility] whom I have contacted and spoken to thoracic surgery, Dr. Tyshawn Barth, who has excepted the patient in transfer when a bed is available. (3) Sepsis: Present on admission. Now resolved (4) Hypokalemia: Continue oral replacement. Serial labs Plan Transfer to [facility] for further care Total Time Total Time Spent Total Time Spent (In Minutes): 40 minutes Discharge Plan Discharge Items Patient Disposition: Transfer Acute Care Hospital Reason For Visit: PNEUMONIA Discharge Diagnosis: Right lower lobe pneumonia with parapneumonic pleural effusion which might be empyema Activity: Per Instructions section Activity Comment: Bed rest for now Non-emergency contact: Primary Care Provider Call non-emergency contact if: you have any medication questions Follow-up/Referrals: [facility] [Primary Care Provider] - Diet: Regular Addtl Attending Provider Instructions: Transfer to [facility] in [place] is pending Pending Studies at Discharge: No Stand-Alone Forms: [facility], Work/School Release, Smoking Cessation Skilled Items Patient informed of condition?: Yes DNR: No Discharge Level of Care: Other Communicable Disease: No Discharge Prognosis: Stable Lines: Peripheral IV Urinary Catheter: No Medications and DC Order Prescriptions: New MAG-AL 200-200 mg/5 mL Suspension 30 ml PO Q6H PRN (Reason: dyspepsia) Qty: 30 0RF ondansetron HCl (PF) 4 mg/2 mL Solution 4 mg IV Q6H PRN (Reason: nausea and vomiting) Qty: 10 0RF polyethylene glycol 3350 [Miralax] 17 gram Powder In Packet 17 g PO DAILY PRN (Reason: constipation) Qty: 14 0RF acetaminophen 325 mg Tablet 650 mg PO TID Qty: 30 0RF ketorolac 30 mg/mL (1 mL) Solution 30 mg IV Q6H PRN (Reason: pain) Qty: 10 0RF Discontinued doxycycline hyclate 100 mg capsule 100 mg PO BID 7 Days Qty: 14 0RF naproxen 500 mg tablet 500 mg PO UD Discharge Orders: Discharge Order (Routine); Ordered 03/11/22 Ordered By: Jake Padilla Admission Data Admit Date/Time: 03/09/22 19:43 Attending Provider: Jake Padilla Admit Provider: Cristy Bailey Primary Care Provider: [facility] Other Providers: Solomon Talamantes Eric S. ; Maciel Moreno ; Yoshi Lynn ; Ancelmo Hope ; Dina Cantu Coding Level of Care Code D/C DAY MANAGEMENT >30 MINS Diagnoses Pneumonia J18.9 Pleurisy with effusion J90 Sepsis A41.9 Hypokalemia E87.6
--- NOTE | 2022-03-11 23:02 | Electrocardiogram Report ---
Test Reason : Blood Pressure : / mmHG Vent. Rate : 108 BPM Atrial Rate : 108 BPM P-R Int : 158 ms QRS Dur : 092 ms QT Int : 336 ms P-R-T Axes : 033 021 000 degrees QTc Int : 450 ms Sinus tachycardia Nonspecific T wave abnormality Abnormal ECG When compared with ECG of 08-MAR-2022 05:36, Nonspecific T wave abnormality now evident in Anterior leads Confirmed by Carlitos Bonilla ([id number]) on 03/11/2022 11:02:32 PM Referred By: REFERRED SELF Confirmed By:Carlitos Bonilla
[2022-03-12] MEDS: ACETAMINOPHEN 325 MG TAB PO SCH ×2 (04:07→15:18)
[2022-03-12 06:03] LABS: Basophils # (auto) 0.06 K/uL (0-0.2); Basophils % (auto) 0.4 %; Eosinophils % (auto) 1.5 %; Hematocrit (blood only) 31.9 % (40.1-51.0); Hemoglobin 10.9 g/dl (14.0-18.0); Immature Granulocytes # (auto) 0.22 K/uL (0.00-0.02); Immature Granulocytes % (auto) 1.6 %; Lymphocytes # (auto) 1.72 K/uL (1.2-3.4); Lymphocytes % (auto) 12.5 %; Mean Corpuscular Hemoglobin 28.7 pg (25.0-34.0); Mean Corpuscular Hgb Conc 34.2 g/dL (32.0-36.0); Mean Corpuscular Volume 83.9 fL (80.0-100.0); Mean Platelet Volume 8.9 fL (9.4-12.4); Monocytes # (auto) 1.34 K/uL (0.24-0.82); Monocytes % (auto) 9.7 %; Neutrophils # (auto) 10.21 K/uL (1.4-6.5); Neutrophils % (auto) 74.3 %; Platelet Count 371 K/uL (130-400); RDW Coefficient of Variation 11.7 % (11.5-14.5); RDW Standard Deviation 35.5 fL (36.4-46.3); White Blood Count 13.75 K/ul (4.8-10.8)
[2022-03-12 06:27] LABS: Calcium 8.3 mg/dl (8.5-10.1); Creatinine Clr Calc Pharmacy 173.9 ml/min; Est GFR (African American) 146.8 ml/min; Est GFR (Non-African American) 126.7 ml/min; Potassium 3.6 mmol/L (3.5-5.1)
[2022-03-12] MEDS: PIPERACILLIN/TAZOBACTAM 3.375 GM in DEXTROSE 5% 100 ML IV SCH ×2 (07:49→15:19)
[2022-03-12] MEDS: MAGNESIUM OXIDE 400 MG TAB PO SCH (10:38)
--- NOTE | 2022-03-12 13:34 | Hospitalist Progress Note ---
Date of Service March 12, 2022 Assessment & Plan (1) Pleurisy with effusion: Plan: CXR on 03/10 with enlarging empyema. Seen by pulm. Patient declined thoracentesis or chest tube at that time due to preference for transfer to tertiary care center. No bed at [facility], so patient now requesting transfer to [facility]. Patient accepted by Dr. Caesar Bustos on 03/12 with placement pending. - Continue Zosyn - Follow cultures - Repeat CXR as he reports shortness of breath is worsening. (2) Pneumonia: Plan: Right lower lobe. Azithromycin and Rocephin discontinued on March 10 and Zosyn started, day 2. Will obtain sputum culture if sputum is produced. - As above (3) Sepsis: Plan: Present on admission. Plan Transfer to [facility] as soon as able Admission and Anticipated Discharge Date Admission Date: March 09, 2022 Subjective Feeling more shortness of breath. Now with more shortness of breath when he moves around. Physical Exam Constitutional: WD/WN, vitals as above Eyes: EOM intact bilaterally; no conjunctival abnormality ENMT: external ear and nose normal, oropharynx normal Neck: trachea midline, no thyromegaly normal visual inspection Respiratory: no respiratory distress Auscultation: + diminished lung sounds (Right side) Cardiovascular: RRR, no murmur, no edema Gastrointestinal (Abdomen): Inspection/Auscultation: abdomen normal to inspection; abdomen not distended Musculoskeletal: no cyanosis or clubbing, extremities motor strength 5/5 Skin: no rashes, warm and dry Neurologic: moves all extremities and awake Psychiatric: Orientation: alert, oriented to person and cooperative Results & Data Results & Data ([facility]) Vital Signs (Past 12 Hours) Vital Signs Temp Pulse Pulse Resp BP BP Pulse Ox 03/12/22 11:59 37.0 C 103 H 20 142/99 H 94 03/12/22 09:21 03/12/22 09:21 93 H 03/12/22 08:19 37.2 C 99 H 17 130/85 95 03/12/22 04:20 36.9 C 116 H 18 149/93 H 90 O2 Del Method O2 Flow Rate 03/12/22 11:59 Nasal Cannula 2 03/12/22 09:21 Nasal Cannula 2 03/12/22 09:21 03/12/22 08:19 Nasal Cannula 2 03/12/22 04:20 Nasal Cannula 2 PG Care Time/CCT Total # of Minutes Spent Total Time Spent with Patient: Total time spent is greater than 50% in coordination of care (as documented) at patient's floor/unit and/or counseling patient: Coding Level of Care Code 95007 Subseq Hosp Care Lvl 3 Diagnoses Pleurisy with effusion J90 Pneumonia J18.9 Sepsis A41.9
--- NOTE | 2022-03-12 14:26 | XRay Report ---
XR chest 2V PA/lateral HISTORY: Worsening empyema concern COMPARISON: Chest 03/10/2022. FINDINGS: No significant change in the moderate to large loculated right pleural effusion. No left pl eural effusion. No pneumothorax. The heart is normal in size. Right lung interstitial thickening pers ists. IMPRESSION: 1. No significant change in the moderate to large loculated right pleural effusion. 2. Right lung interstitial thickening persists. ACT 112: Negative or not required by law. Electronically signed by: Esvin Boston M.D. 03/12/2022 2:24 PM
--- NOTE | 2022-03-12 17:46 | Discharge Summary ---
Date of Service March 12, 2022 Admission HPI Per Admitting Provider Date of Service March 08, 2022 Assessment & Plan (1) Pneumonia: Plan: Delvin Sweeney is a 21 year old male who presented early this morning (03/08) with worsening chest pain, accompanied by SOB and cough. He presented to the ED 2 days ago on 03/06 with recent URI and chest pain. He was found to have right- sided infiltrate consistent with pneumonia and trace right pleural effusion on CT. Prescribed doxycycline & took 3 doses of the antibiotic. 1. Pneumonia - Patient presented to ED early this morning to ED for worsening chest pain and SOB. Chest XR today showed progressive consolidation of right mid-lung and lung base consistent with pneumonia & mildly increased size of right pleural effusion. - Labs significant for leukocytosis, mild hyperbilirubinemia, elevated procalcitonin. - Discontinued doxycycline. Started on ceftriaxone 2 g IV q24h and azithromycin 0.5 g IV q24h for broader abx coverage in case of resistant S. Pneumo, H. flu, or other gram negative. Azithromycin for atypical coverage, though decreased suspicion for atypical as CXR shows a lobar pattern. Plan to observe for improvement/stabilization. - Prescribed acetaminophen 650 mg PO q4h prn for pleuritic chest pain related to PNA. Admission and Anticipated Discharge Date Admission Date: March 08, 2022 Supervising Attestation I personally examined the patient and verified all dugan points of history and exam, discussed case, and agree with decision making with La Nena Kowalski MS2 Chest pain, cough, fever. Pneumonia. Vitals noted, in general he is awake and alert fatigued but no distress. HEENT normocephalic atraumatic mucous membranes moist. Breathing unlabored no accessory muscle use good effort. Skin shows no rashes no pallor or icterus. Neuro without focal deficits. Exam otherwise as above. Community-acquired pneumonia with sepsis present on admission -not entirely cl ear if he failed Doxy or just enough time to improvehowever, resistant strep versus H. influenzae both possibleZithromax/Rocephin, supportive care. Subjective Delvin Sweeney is a 21 year old male patient with no significant past medical history presenting to the ED for worsening chest pain and shortness of breath. Patient went to [facility] one week ago for chest pain and was prescribed naproxen. Patient presented to the ED on 12/6 for ongoing chest pain and shortness of breath. Chest x-ray in ED showed findings of mid right hemidiaphragmatic elevation with no evidence of pneumothorax, pleural effusion, airspace consolidation or overt pulmonary edema. Chest CTA showed findings of a small focal peripheral airspace opacity within the right upper lobe. Patient was lynne bob for pneumonia with doxycycline 100mg BID. Patient is presenting to the ED today with worsening chest pain and shortness of breath. Patient reports the pain is on the right side and is sharp in nature. Patient rates the pain 6-7/10. Patient states the pain is worse with breathing and when changing positions. The patient denies radiation of pain. Patient states naproxen improves chest pain for 30 minutes to an hour at a time before returning. Patient also states he experiences right sided neck pain when coughing or changing position. Patient reports shortness of breath has not improved. Patient also has dry cough that has been improving. Patient reports one episode of vomiting yesterday morning. Patient states he is fatigued and has a decreased appetite. Patient vapes daily. Patient stopped vaping 2 weeks ago when started feeling sick. Patient denies sore throat, chills, lightheadedness, headache, abdominal pain, nausea, diarrhea, constipation, dysuria, or hematuria. FamHx: Father: CAD Paternal Grandfather: CAD SocHx: Education/ Occupation: Student at [employer]. Tobacco: vapes daily. Alcohol: none. Illicits: none. Exercise: none. Home Meds: None Review of Systems Review of Systems: As noted in HPI. Cardiovascular: Additional Comments: Physical Exam Constitutional: Well-developed male in no acute distress. Resting comfortably in bed, increased discomfort with sitting/movement. Eyes: No scleral icterus. Conjunctivae pink. ENMT: Moist mucous membranes. No oral erythema or lesions. Neck: Supple with full ROM. Respiratory: Not in respiratory distress. Diminished breath sounds in right lower lung field. +egophony over the right lower lung field. No tactile fremitus. Left lung clear to auscultation. Cardiovascular: Regular rate and rhythm on monitor. No murmurs, rubs, or gallops on auscultation. No LE edema. Good capillary refill. Gastrointestinal (Abdomen): Bowel sounds present. Abdomen soft, nondistended, nontender. No masses palpated. Skin: Warm & dry. No rashes. Neurologic: Alert & oriented x 3. No focal neurologic deficits. Psychiatric: Appropriate mood and affect. Results & Data ([facility]) Vital Signs (Past 12 Hours) Vital Signs Temp Pulse Pulse Resp BP BP Pulse Ox 03/08/22 08:40 105 H 24 96 03/08/22 08:32 106 H 23 110/71 96 03/08/22 08:32 110/71 03/08/22 08:30 101 H 32 H 95 03/08/22 08:30 117/74 03/08/22 08:25 96 03/08/22 08:10 104 H 21 03/08/22 08:00 108 H 14 03/08/22 08:00 B 128/68 03/08/22 07:45 110 H 21 122/68 95 03/08/22 07:40 112 H 28 H 95 03/08/22 07:30 116 H 15 94 03/08/22 07:15 120/73 03/08/22 07:00 126 H 24 132/68 94 03/08/22 05:25 03/08/22 05:25 37.2 C 143 H 21 140/77 94 03/08/22 05:33 135 H 20 94 03/08/22 05:26 38.5 C H 163 H 18 147/81 H 96 O2 Del Method 03/08/22 08:40 Room Air 03/08/22 08:32 Room Air 03/08/22 08:32 03/08/22 08:30 Room Air 03/08/22 08:30 03/08/22 08:25 Room Air 03/08/22 08:10 03/08/22 08:00 03/08/22 08:00 03/08/22 07:45 Room Air 03/08/22 07:40 Room Air 03/08/22 07:30 Room Air 03/08/22 07:15 03/08/22 07:00 Room Air 03/08/22 05:25 Room Air 03/08/22 05:25 Room Air 03/08/22 05:33 Room Air 03/08/22 05:26 Room Air Signed By: <Electronically signed by Janie Kowalski > 03/08/22 1610 <Electronically signed by Solomon Talamantes DO> 03/08/22 1732 Principal Diagnosis Community-acquired pneumonia with empyema Discharge Exam Constitutional WD/WN, vitals as above Eyes EOM intact bilaterally; no conjunctival abnormality ENMT external ear and nose normal, oropharynx normal Neck trachea midline, no thyromegaly normal visual inspection Respiratory no respiratory distress Auscultation: + diminished lung sounds (Right side) Cardiovascular RRR, no murmur, no edema Gastrointestinal (Abdomen) Inspection/Auscultation: abdomen normal to inspection; abdomen not distended Musculoskeletal no cyanosis or clubbing, extremities motor strength 5/5 Skin no rashes, warm and dry Neurologic moves all extremities and awake Psychiatric Orientation: alert, oriented to person and cooperative Discharge Data Allergies Allergy/AdvReac Type Severity Reaction Status Date / Time No Known Allergies Allergy Unverified 03/08/22 15:43 Consultations 03/08/22 07:12 ED Decision to Admit Stat 03/10/22 10:07 Consult Pulmonology Routine 03/11/22 11:48 Burn CD for patient Stat Ordered Studies 03/10/22 10:22 US point of care ultrasound Urgent 03/10/22 11:56 US point of care ultrasound Urgent Hospital Course (1) Pleurisy with effusion: CXR on 03/10 with enlarging empyema. Seen by pulm on 03/10. Per notes, patient declined thoracentesis or chest tube at that time due to preference for transfer to tertiary care center. - Continue Zosyn - Follow cultures - Repeat CXR on 03/12 as he reports shortness of breath is worsening. Appears stable. If he cannot go today to [place], I will ask pulmonary to re-evaluate as he clearly needs definitive treatment and just allowing his empyema to remain there. (2) Pneumonia: Right upper lobe on CT chest on 03/06. He was put on doxycycline and discharged from the ER on that date. Returned on 03/08 with worsening pain/shortness of breath. Started on azithromycin and ceftrixone, then discontinued on 03/10 for Zosyn. - Sputum cx pending -> Not able to produce sputum. - Blood cultures negative - As above (3) Sepsis: Present on admission. Resolved. Plan Transfer to [facility] Total Time Total Time Spent Total Time Spent (In Minutes): 35 Discharge Plan Discharge Items Patient Disposition: Transfer Acute Care Hospital Reason For Visit: PNEUMONIA Discharge Diagnosis: Right lower lobe pneumonia with parapneumonic pleural effusion which might be empyema Activity: Per Instructions section Activity Comment: Bed rest for now Non-emergency contact: Primary Care Provider Call non-emergency contact if: you have any medication questions Follow-up/Referrals: [facility] [Primary Care Provider] - Diet: Regular Addtl Attending Provider Instructions: Patient seen on 03/06 in the ER for pneumonia. Discharged on oral abx, but returned on 03/08 with pleural effusion which has gotten larger and now likely empyema. Patient requested transfer to tertiary care center. MRSA swab was negative, so patient was on Zosyn in the hospital. Pending Studies at Discharge: No Stand-Alone Forms: My [facility] [employer], Work/School Release, Smoking Cessation Skilled Items Patient informed of condition?: Yes DNR: No Discharge Level of Care: Other Communicable Disease: No Discharge Prognosis: Stable Lines: Saline Lock Urinary Catheter: No Medications and DC Order Prescriptions: New acetaminophen 325 mg Tablet 650 mg PO TID Qty: 30 0RF polyethylene glycol 3350 [Miralax] 17 gram Powder In Packet 17 g PO DAILY PRN (Reason: constipation) Qty: 14 0RF ketorolac 30 mg/mL (1 mL) Solution 30 mg IV Q6H PRN (Reason: pain) Qty: 10 0RF MAG-AL 200-200 mg/5 mL Suspension 30 ml PO Q6H PRN (Reason: dyspepsia) Qty: 30 0RF ondansetron HCl (PF) 4 mg/2 mL Solution 4 mg IV Q6H PRN (Reason: nausea and vomiting) Qty: 10 0RF Discontinued doxycycline hyclate 100 mg capsule 100 mg PO BID 7 Days Qty: 14 0RF naproxen 500 mg tablet 500 mg PO UD Discharge Orders: Discharge Order (Routine); Ordered 03/11/22 Ordered By: Jake Dan/Other Patient Handouts: Understanding Deep Vein Thrombosis, Procedures for Deep Vein Thrombosis, Preventing Deep Vein Thrombosis Admission Data Admit Date/Time: 03/09/22 19:43 Attending Provider: Mitchel Bui Admit Provider: Cristy Bailey Primary Care Provider: [facility] Other Providers: Solomon Talamantes ; Miguel A Pillai ; Maciel Moreno ; Yoshi Lynn ; Ancelmo Hope ; Cantu,Dina M. Coding Level of Care Code D/C DAY MANAGEMENT >30 MINS Diagnoses Pleurisy with effusion J90 Pneumonia J18.9 Sepsis A41.9
== END 2022-03-12 20:20 | disposition short-term general hospital (02) | DRG 871 ==
LOC: ED 05:25 → EDINP 05:25 → 2W 16:55 → SUATTDRO 03-09 19:43 → 1E 03-10 11:22 → 2E 03-10 18:18